=== PATIENT | male | born 1985 | race Caucasian/White ===

== ENCOUNTER 2021-11-19 08:47 | Emergency (ER) | payer BC ==
[~2021-11-19] VITALS: Ht 170.2 cm; Wt 113.4 kg
[2021-11-19 08:49] VITALS: BP 144/90
== END 2021-11-19 09:52 | disposition home or self-care (01) ==
LOC: ER 08:47
DX: S50.01XA Contusion of right elbow, initial encounter (principal); S06.0X9A Concussion with loss of consciousness of unspecified duration, initial encounter; W18.30XA Fall on same level, unspecified, initial encounter; Y93.89 Activity, other specified; Y92.89 Other specified places as the place of occurrence of the external cause; Y99.8 Other external cause status